=== PATIENT | female | born 1975 | race Two or more races ===

== ENCOUNTER 2021-03-13 08:16 | Emergency (ER) | payer OTHER, MEDICAID ==
[~2021-03-13] VITALS: Ht 157.5 cm; Wt 72.6 kg
[2021-03-13 08:38] VITALS: BP 116/77
== END 2021-03-13 09:14 | disposition home or self-care (01) ==
LOC: ER 08:16
DX: F20.9 Schizophrenia, unspecified (principal); Z76.0 Encounter for issue of repeat prescription